=== PATIENT | female | born 1940 | race Caucasian/White ===

== ENCOUNTER 2018-07-22 07:31 | Day surgery (SDC) | payer MEDICARE, OTHER ==
[2018-07-21 11:18] VITALS: BMI 36.3
[2018-07-22 08:45] VITALS: BP 185/58; TEMP 98
--- NOTE | 2018-07-22 10:35 | RAD ---
3 VIEW CERVICAL SPINE SERIES: Date: 07/22/18 INDICATION: Cervical radiculopathy, neck pain. FINDINGS: There is straightening of the normal cervical curvature. There is a mild degree (Grade I) of spondylo listhesis involving C4-5. There is moderate multilevel degenerative change of the mid to lower cervic al spine. Multilevel degenerative facet sclerosis and hypertrophy is present. No compression fracture . Prevertebral soft tissues are normal in caliber. Flexion and extension views are performed, which reveal correction of the Grade I spondylolisthesis o f the C4-5 level with extension positioning. IMPRESSION: Multilevel moderate degenerative change of the cervical spine. There is Grade I spondylolisthesis of C4-5 which does reveal mild translational motion as discussed above. POS: DAVID
--- NOTE | 2018-07-22 10:35 | RAD ---
THREE VIEWS LUMBAR SPINE: Technique: Weightbearing upright extension, upright neutral, and upright flexion views are submitted. FINDINGS: There is preservation of disc space height with osteophyte formation at L1-2, L2-3, and L3-4. There a re five lumbar type vertebral bodies. No malalignment in the neutral position. Abnormal motion upon e xtension or flexion. IMPRESSION: No spondylolisthesis. No abnormal motion upon flexion or extension. POS: DAVID
--- NOTE | 2018-07-22 10:35 | RAD ---
CERVICAL SPINE MYELOGRAM: LUMBAR SPINE MYELOGRAM: RADIATION EXPOSURE DATA: Intermittent fluoroscopy for 0.3 minutes. PROCEDURE: After informed consent had been obtained, the patient was escorted to the interventional suite and pl aced on the procedural table. Actuarial Clerk imaging was performed. The patient was placed into a prone posi tion. Skin on the low back was then prepped and draped in the standard sterile fashion and topical a nd regional soft tissue anesthesia was achieved with 1% lidocaine and sodium bicarbonate. A right L2 -L3 interlaminar approach was selected, and a 22 gauge needle was uneventfully advanced into the thec al sac with clear color CSF. Subsequently, 9 cc [id number] was instilled into the thecal sac under real time fluoroscopy. Appropriate opacification of thecal sac demonstrated with imaging stored for confirmation. The needle was then removed from the patient. The patient tolerated the procedure wel l and was then transferred to CT to undergo subsequent myelogram. Reference separate report for full details. IMPRESSION: Technically successful cervical spine myelogram as detailed above. POS: DAVID
--- NOTE | 2018-07-22 10:56 | CT ---
POST MYELOGRAM CERVICAL SPINE CT: Date: 07/22/18 HISTORY: Cervical radiculopathy. COMPARISON: None. TECHNIQUE: Post myelogram cervical spine CT is performed in the axial plane. Reformatted images are submitted fo r interpretation. FINDINGS: Visualized soft tissue neck structures, upper mediastinum, and lung apices are unremarkable. There is a mass effect upon the posterior left hypopharynx secondary to medial deviation of the left carotid artery. Lateral masses of C1 and C2, as well as the facets, have appropriate articulation. Intact odontoid pr ocess. Cervical spine vertebral body height is maintained. There is no fracture. C2-C3: No significant disc osteophyte complex. Mild right foraminal narrowing due to degenerative ch rebecca of the uncovertebral joint and facet hypertrophy. Left neural foramen is patent. C3-C4: There is a broad based disc bulge that abuts the thecal sac. There is mild central canal sten osis. There is right facet hypertrophy. Nevertheless, neural foramina are patent bilaterally. C4-C5: 1.7 mm of anterolisthesis of C4 upon C5. There is a broad based disc bulge that abuts the the jim sac. No significant central canal stenosis. There is right facet hypertrophy. Minimal right missy inal narrowing. Left neural foramen is patent. C5-C6: There is a central disc bulge that abuts the thecal sac and effaces the ventral subarachnoid space. Minimal mass effect upon the ventral cord. Mild central canal stenosis. Degenerative changes i n bilateral uncovertebral joints and right facet hypertrophy are present. Moderate right and mild to moderate left foraminal narrowing. C6-C7: There is a central disc osteophyte complex that effaces the ventral subarachnoid space. Ventr al subarachnoid space is effaced in the midline. There is mass effect upon the ventral cord with mild central canal stenosis. Degenerative changes in bilateral uncovertebral joints and right facet hyper trophy are noted. Mild right foraminal narrowing. Left neural foramen is minimally narrowed. C7-T1: No significant central canal stenosis or foraminal narrowing. IMPRESSION: Degenerative changes of the cervical spine as detailed above. No high grade central canal stenosis or high grade foraminal narrowing. POS: [facility]
--- NOTE | 2018-07-22 10:57 | CT ---
CT LUMBAR SPINE WITH CONTRAST: CT MYELOGRAM LUMBAR SPINE WITH INTRATHECAL CONTRAST: INDICATIONS: Low back pain. Lumbar radiculopathy. 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 FINDINGS: Vertebral body heights are maintained. There is mild generalized disk space narrowing throughout the lumbar spine with associated marginal osteophyte formation, most pronounced anteriorly, with promine nt bridging anterior osteophyte formation at the ventral right aspect of the L1-L2 segments. The conus medullaris is normal in morphology and terminates at the mid L1 level. Multilevel bilatera l degenerative facet hypertrophy is present throughout the facet joints of the lumbar spine. L1-L2: No significant central canal or foraminal stenosis. L2-L3: No significant central canal or neural foraminal stenosis. L3-L4: There is a broad-based disk bulge with mild narrowing of the central canal and mild bilateral narrowing of the neural foramina. L4-L5: Broad-based disk osteophyte results in moderate central canal stenosis and mild to moderate b ilateral neural foraminal stenosis. L5-S1: There is a broad-based disk bulge without high grade compromise of the terminal thecal sac. Prominent lateralized osteophyte results in moderate left foraminal stenosis. No significant right f oraminal compromise. There is an indeterminate hypodensity of the right kidney, incompletely evaluated on the basis of non contrast imaging. Slight left convexity curvature of the lumbar spine is seen. IMPRESSION: 1. There is multilevel degenerative change of the lumbar spine, which is more pronounced at the mid to lower aspect, as delineated above. 2. Indeterminate right renal hypodensity, likely a cyst, which may be confirmed with a follow-up [place] al ultrasound for confirmation. CODE T POS: DAVID
[2018-07-22] MEDS ORDERED: Iopamidol-M 300 61% 15 ML VIAL ONE (16:12)
== END 2018-07-22 10:25 | disposition home or self-care (01) ==
LOC: RAD 07:31 → EDSTATUS 08:00 → RAD 10:25
PROVIDERS: ATTEND Neurological Surgery
PROC: B01B1ZZ Fluoroscopy of Spinal Cord using Low Osmolar Contrast (ICD-10-PCS; principal; 2018-07-22)
DX: M50.11 Cervical disc disorder with radiculopathy, high cervical region (principal); M43.12 Spondylolisthesis, cervical region; M48.02 Spinal stenosis, cervical region; M51.16 Intervertebral disc disorders with radiculopathy, lumbar region; I10 Essential (primary) hypertension; E11.9 Type 2 diabetes mellitus without complications; J30.1 Allergic rhinitis due to pollen; J30.89 Other allergic rhinitis; Z79.01 Long term (current) use of anticoagulants; Z79.84 Long term (current) use of oral hypoglycemic drugs; Z79.899 Other long term (current) drug therapy; Z95.0 Presence of cardiac pacemaker
CPT/HCPCS: 62305; 72040; 72100; 72126; 72132; 90662; G0008; 90471

== ENCOUNTER 2018-07-29 08:33 | Emergency (ER) | payer MEDICARE, OTHER ==
[2018-07-29 09:09] LABS: #Basophils 0.1 thou/uL (0.0-0.2); #Eosinphils 0.2 thou/uL (0.0-0.7); #Lymphocytes 4.2 thou/uL (1.20-3.40); #Monocytes 0.8 thou/uL (0.11-0.59); #Neutrophils 3.4 thou/uL (1.40-6.50); %Basophils 1.1 % (0.0-1.0); %Eosinophils 2.6 % (0.0-10.0); %Lymphocytes 48.1 % (21.0-51.0); %Monocytes 9.6 % (0.0-10.0); %Neutrophils 38.6 % (42.0-75.0); Hemoglobin 14.9 g/dL (12.0-16.0); Mean Corpuscular HGB CONC 34.1 g/dL (32.0-36.0); Mean Corpuscular Hemoglobin 30.8 pg (27.0-31.0); Mean Corpuscular Volume 90.2 fL (78.0-98.0); Mean Platelet Volume 7.6 fL (7.4-10.4); Platelet Count 278 thou/uL (130-400); RBC Distribution Width 11.7 % (11.5-14.5); Red Blood Cell (RBC) Count 4.85 mill/uL (4.20-5.40); White Blood Cell (WBC) Count 8.7 thou/uL (4.8-10.8)
[2018-07-29 09:28] LABS: ALT (SGPT) 13 U/L (8-55); AST (SGOT) 17 U/L (5-34); Alkaline Phosphatase 75 U/L (40-150); Anion Gap 13 mmol/L (10-20); BUN (Urea Nitrogen) 17 mg/dL (9.8-20.1); Bilirubin, Total 1.2 mg/dL (0.2-1.2); Calc. Creatinine Clearance 0 mL/min (70-130); Calcium 9.6 mg/dL (7.8-10.44); Carbon Dioxide 27 mmol/L (23-31); Chloride 102 mmol/L (98-107); Estimated GFR-MDRD 76; Glucose 141 mg/dL (83-110); Potassium 4.1 mmol/L (3.5-5.1); Sodium 138 mmol/L (136-145)
[2018-07-29 09:35] LABS: CKMB 0.7 ng/mL (0-6.6); Troponin I Less than 0.010 ng/mL (< 0.028)
[2018-07-29 09:48] LABS: Bilirubin Negative (Negative); Blood, Urine Negative (Negative); Clarity CLEAR (Clear); Glucose, Urine (Dipstick) Negative (Negative); Leukocyte Moderate (Negative); Nitrite Negative (Negative); Protein, Urine (Dipstick) Negative (Neg-Trace); Urobilinogen 0.2 mg/dL (0.2-1.0); pH, Urine 7.5 (5.0-9.0)
--- NOTE | 2018-07-29 09:48 | RAD ---
UPRIGHT PORTABLE CHEST 1 VIEW: HISTORY: A 7-year-old female with a history of dyspnea and shortness of breath. COMPARISON: 09/09/2016. FINDINGS: Left ICD. Monitor leads overlie the chest. No significant cardiomegaly. No confluent pneumonia, ov ert edema, or pleural effusion. IMPRESSION: No acute intrathoracic disease. Left implantable cardioverter defibrillator. Atherosclerosis of the aorta. Stable from prior study, 09/09/2016. POS: RAYMOND
[2018-07-29 09:52] LABS: Bacteria/HPF None Seen HPF (None Seen); Hyaline Casts/LPF 0-3 HYALINE CAST LPF (0-3 Hyaline); Pathc Cast-AUWi Flag 0.87 (0-2.49); RBC/HPF 0-3 HPF (0-3)
--- NOTE | 2018-08-01 12:17 | EKG ---
Test Reason : Blood Pressure : / mmHG Vent. Rate : 075 BPM Atrial Rate : 075 BPM P-R Int : 284 ms QRS Dur : 104 ms QT Int : 392 ms P-R-T Axes : 019 -10 022 degrees QTc Int : 437 ms Atrial-paced rhythm with prolonged AV conduction Abnormal ECG Confirmed by BOOGIE RENDON ([id number]), editor magazine NITESH HAMMONDS ([id number]) on 08/01/2018 12:17:21 PM Referred By: Confirmed By:BOOGIE RENDON
== END 2018-07-29 10:26 | disposition home or self-care (01) ==
LOC: ERS 08:33
DX: R06.02 Shortness of breath (principal); F43.0 Acute stress reaction; E11.9 Type 2 diabetes mellitus without complications; I10 Essential (primary) hypertension; F41.9 Anxiety disorder, unspecified; Z79.899 Other long term (current) drug therapy
CPT/HCPCS: 71045; 80053; 81003; 81015; 82553; 83880; 84484; 85025; 87086; 93005; 94640

== ENCOUNTER 2024-01-02 11:59 | Outpatient (CLI) | payer MEDICARE | END 2024-01-02 12:00 | disposition home or self-care (01) | LOC: SCSRAD 11:59 | PROVIDERS: ATTEND Family Medicine | DX: R06.00 Dyspnea, unspecified (principal) | CPT/HCPCS: 71046 ==

== ENCOUNTER 2024-04-13 08:38 | Outpatient (CLI) | payer MEDICARE | END 2024-04-13 08:39 | disposition home or self-care (01) | LOC: NM 08:38 | PROVIDERS: ATTEND Family Medicine | DX: G31.83 Neurocognitive disorder with Lewy bodies (principal); F02.80 Dementia in other diseases classified elsewhere, unspecified severity, without behavioral disturbance, psychotic disturbance, mood disturbance, and anxiety | CPT/HCPCS: 78803; A9584 ×2 ==